=== PATIENT | male | born 1985 | race African-American/Black ===

== ENCOUNTER 2023-08-25 13:18 | Emergency (ER) | payer MEDICAID ==
[~2023-08-25] VITALS: Ht 182.9 cm; Wt 82.0 kg
[2023-08-25 13:21] VITALS: BP 136/82; PULSE 64; TEMP 98.3; O2SAT 98
[2023-08-25 13:30] VITALS: RESP 17
[2023-08-25] MEDS: KETOROLAC 15MG/ML VIAL IM ONE (13:30)
[2023-08-25] MEDS: LORAZEPAM 0.5MG TABLET PO ONE (14:15)
== END 2023-08-25 15:35 | disposition home or self-care (01) ==
LOC: ER 13:18
DX: F41.9 Anxiety disorder, unspecified (principal)
CPT/HCPCS: 96372; 99283; J1885; Z7610

== ENCOUNTER 2023-11-16 17:54 | Emergency (ER) | payer OTHER, MEDICAID ==
[~2023-11-16] VITALS: Ht 177.8 cm; Wt 73.0 kg
[2023-11-16 17:58] VITALS: TEMP 97.8; O2SAT 98
[2023-11-16 18:50] VITALS: BP 128/64; PULSE 80; RESP 16
[2023-11-16] MEDS: KETOROLAC 30MG/ML VIAL IM ONE (18:50)
== END 2023-11-16 18:53 ==
LOC: ER 17:54
DX: F41.9 Anxiety disorder, unspecified (principal); R51.9 Headache, unspecified
CPT/HCPCS: 96372; 99283; J1885; Z7610

== ENCOUNTER 2024-04-07 00:48 | Emergency (ER) | payer MEDICAID, OTHER ==
[~2024-04-07] VITALS: Ht 185.4 cm; Wt 75.0 kg
[2024-04-07 00:58] VITALS: O2SAT 98
[2024-04-07 01:41] VITALS: TEMP 98.6; O2SAT 100
[2024-04-07 07:49] VITALS: BP 129/88; PULSE 94; RESP 18
[2024-04-07] MEDS: KETOROLAC 30MG/ML VIAL IV NR (07:49)
== END 2024-04-07 10:18 | disposition left against medical advice (07) ==
LOC: ER 00:48
DX: M79.672 Pain in left foot (principal); M79.671 Pain in right foot; F41.9 Anxiety disorder, unspecified
CPT/HCPCS: 99283; 96374; J1885